=== PATIENT | male | born 1990 | race Caucasian/White ===

== ENCOUNTER 2017-03-27 12:13 | Emergency (ER) | payer OTHER ==
[2017-03-27 12:40] VITALS: TEMP 98.7; BMI 20.9
[2017-03-27 14:05] LABS: PH,URINE 7.5 (5.0-8.0); URINE APPEARANCE CLEAR; URINE BILIRUBIN NEGATIVE (NEGATIVE); URINE BLOOD 1+ (NEGATIVE); URINE COLOR LT. YELLOW; URINE GLUCOSE (UA) NEGATIVE (NEGATIVE); URINE KETONE NEGATIVE (NEGATIVE); URINE NITRITE NEGATIVE (NEGATIVE); URINE PROTEIN NEGATIVE (NEGATIVE); URINE UROBILINOGEN 0.2 mg/dL (0.2-1.0)
[2017-03-27 14:07] LABS: MCH 27.8 pg (25.7-33.7); MEAN CELL VOLUME 86.6 fl (80-96); MEAN PLT VOLUME 10.6 fl (7.5-11.1); PLATELET COUNT 226 K/MM3 (134-434); RDW 13.6 % (11.9-15.9); WHITE BLOOD COUNT 7.6 K/mm3 (4.0-10.0)
[2017-03-27 14:08] LABS: URINE LEUK ESTERASE 2+ (NEGATIVE)
[2017-03-27 14:12] LABS: ALBUMIN 3.3 g/dl (3.4-5.0); ANION GAP 7 (8-16); BILIRUBIN,TOTAL 0.3 mg/dL (0.2-1.0); CALCIUM 8.8 mg/dL (8.5-10.1); CO2 30 mmol/L (21-32); CREATININE 0.5 mg/dL (0.7-1.3); GLUCOSE,RANDOM 70 mg/dL (74-106); SGOT/AST 16 U/L (15-37); SGPT/ALT 33 U/L (12-78); TOT PROT 7.2 g/dl (6.4-8.2)
[2017-03-27 14:13] LABS: ALK PHOS 77 U/L (45-117)
[2017-03-27] MEDS ORDERED: LEVOFLOXACIN 500 MG TABLET (FP) PO ONE (15:04)
[2017-03-27 15:13] LABS: MYELOCYTE 2 % (0-2); TOTAL CELLS COUNTED 100
[2017-03-27 15:14] LABS: EOS # 0.1 # (0-4.5); LYMPH # 1.9 (8-40); MONO # 1.9 # (3.8-10.2); NEUT # 3.6 # (42.8-82.8); PLATELET ESTIMATE ADEQUATE
--- NOTE | 2017-03-27 15:15 | PDOC ---
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 The mother notes the patient has been at his normal baseline and has had no acute signs of pain. Mother denies any recent fevers, chills, headache or dizziness. Mother denies any recent nausea, vomit, diarrhea or constipation. Mother denies any recent chest pain or shortness of breath. Mother denies any recent dysuria, frequency, urgency or hematuria. Allergies: NKA Past surgical history: None reported. Social History: Nonsmoker. Denies EtOH use and recreational drug use. Primary Care Physician: " Past History - Past Medical History Allergies/Adverse Reactions: Allergies Allergy/AdvReac Type Severity Reaction Status Date / Time Penicillins Allergy Rash Verified 03/27/17 12:33 Home Medications: Ambulatory Orders Baclofen [Lioresal Intrathecal Refill Kit] 0 mcg IT DAILY 03/27/17 Levofloxacin [Levaquin -] 500 mg PO DAILY #10 tablet 03/27/17 COPD: No Other medical history: Cerebral Palsy, Quadrospastisity, Mentally and physically challenge - Suicide/Smoking/Psychosocial Hx Smoking History: Never smoked Review of Systems - Review of Systems Able to Perform ROS?: No *Physical Exam - Vital Signs Last Vital Signs Temp Pulse Resp BP Pulse Ox 98.7 F 81 20 123/73 100 03/27/17 12:34 03/27/17 12:34 03/27/17 12:34 03/27/17 12:34 03/27/17 12:34 - Physical Exam Comments: 03/27/17 15:12 "GENERAL: Awake, alert, in no acute distress HEAD: No signs of trauma EYES: PERRLA, EOMI, sclera anicteric, conjunctiva clear ENT: Auricles normal inspection, hearing grossly normal, nares patent, oropharynx clear without exudates. Moist mucosa NECK: Nontender, no stepoffs, Normal ROM, supple, no lymphadenopathy, JVD, or masses LUNGS: Breath sounds equal, clear to auscultation bilaterally. No wheezes, and no crackles HEART: Regular rate and rhythm, normal S1 and S2, no murmurs, rubs or gallops ABDOMEN: Soft, nontender, normoactive bowel sounds. No guarding, no rebound. No masses : L scrotum with erythema, no induration or fluctuance, no masses, penis wnl SKIN: Warm, Dry, normal turgor, no rashes or lesions noted. " ED Treatment Course - LABORATORY CBC & Chemistry Diagram: 03/27/17 13:30 03/27/17 13:30 - ADDITIONAL ORDERS Additional order review: Laboratory Results 03/27/17 03/27/17 13:30 13:30 Sodium 140 Potassium 4.2 Chloride 103 Carbon Dioxide 30 Anion Gap 7 L BUN 10 Creatinine 0.5 L Creat Clearance w eGFR > 60 Random Glucose 70 L Calcium 8.8 Total Bilirubin 0.3 AST 16 ALT 33 Alkaline Phosphatase 77 Total Protein 7.2 Albumin 3.3 L Urine Color Lt. yellow Urine Appearance Clear Urine pH 7.5 Ur Specific [place] <= 1.005 Urine Protein Negative Urine Glucose (UA) Negative Urine Ketones Negative Urine Blood 1+ H Urine Nitrite Negative Urine Bilirubin Negative Urine Urobilinogen 0.2 03/27/17 13:30 RBC 5.03 MCV 86.6 MCHC 32.0 RDW 13.6 MPV 10.6 Neutrophils % [place] Lymphocytes % [place] Monocytes % [place] Eosinophils % [place] Basophils % [place] - RADIOLOGY Radiology Studies Ordered: Category Date Time Status SCROTUM AND CONTENTS US [US] Stat Ultrasound 03/27/17 13:11 Completed Medical Decision Making - Medical Decision Making 03/27/17 15:15 26 M with 2 days of scrotal swelling and pain. - Labs, UA - US shows L epididymitis - Levaquin 500mg daily x 10 days - Urology follow up I discussed the physical exam findings, ancillary test results and final diagnoses with the patient's parks recreation director. I answered all of their questions. She was satisfied with the care received and felt comfortable with the discharge plan and treatment plan. She agrees to follow up with the primary care physician within 24-72 hours. *DC/Admit/Observation/Transfer Diagnosis at time of Disposition: Epididymitis - Discharge Dispostion Disposition: HOME Condition at time of disposition: Stable - Prescriptions Prescriptions: Levofloxacin [Levaquin -] 500 mg PO DAILY #10 tablet - Referrals Referrals: Ramesh Kitchen MD [Primary Care Provider] - Richard Ruiz MD., MD [Staff Physician] - - Patient Instructions Printed Discharge Instructions: DI for Epididymitis Additional Instructions: Take the antibiotics as prescribed to treat your infection. If you experience worsening pain, swelling, redness, fevers or any other concerning symptoms, return to the ER immediately. Otherwise, follow up with your primary care doctor and a urologist within 1 week. Call the number provided to make an appointment with urology clinic. - Post Discharge Activity - Attestations Physician Attestion: 03/27/17 15:17 I, Dr. Wei Patel MD, attest that this document has been prepared under my direction and personally reviewed by me in its entirety. I further attest, that it accurately reflects all work, treatment, procedures and medical decision -making performed by me.
[2017-03-27] MEDS ORDERED: LEVOFLOXACIN 500 MG TABLET (FP) ONE (15:24)
[2017-03-27 15:40] VITALS: BP 108/66; PULSE 76
[2017-03-27 18:42] LABS: URINE LEUK ESTERASE 2+ (NEGATIVE)
== END 2017-03-27 16:48 | disposition home or self-care (01) ==
LOC: JER 12:13
DX: N45.1 Epididymitis (principal); G80.9 Cerebral palsy, unspecified; F78 Other intellectual disabilities
CPT/HCPCS: 36415; 76870-TC; 80053; 81003; 81015; 85025; 99282-25